=== PATIENT | male | born 1960 | race Caucasian/White ===

== ENCOUNTER → 2020-08-12 | Outpatient (CLI) | payer MEDICARE, OTHER | LOC: KOH-I 13:01 | DX: F17.210 Nicotine dependence, cigarettes, uncomplicated (principal); R91.8 Other nonspecific abnormal finding of lung field | CPT/HCPCS: 71271 ==

== ENCOUNTER 2021-08-30 10:06 | Inpatient (IN) | payer MEDICARE ==
[~2021-08-30] VITALS: Ht 170.2 cm; Wt 71.9 kg
[2021-08-30 11:01] LABS: HEMOGLOBIN 9.5 gm/dl (14.0-17.5); RED BLOOD COUNT 3.28 M/UL (4.20-5.50); WHITE BLOOD COUNT 6.8 K/UL (4.5-11.0)
[2021-08-30 11:30] LABS: BUN/CREATININE RATIO 15 (0-10)
[2021-08-30] MEDS ORDERED: SYNTHROID75 MCG PO (13:31)
[2021-08-30] MEDS ORDERED: ASPIRIN EC81 MG PO (13:31)
[2021-08-30] MEDS ORDERED: LOVASTATIN40 MG PO (13:31)
[2021-08-30] MEDS ORDERED: LOSARTAN POTAS100 MG PO (13:31)
[2021-08-30] MEDS ORDERED: OMEPRAZOLE20 MG PO (13:32)
[2021-08-30 15:32] LABS: BUN/CREATININE RATIO 15 (0-10)
[2021-08-30 20:04] LABS: BUN/CREATININE RATIO 14 (0-10)
[2021-08-30 23:29] LABS: BUN/CREATININE RATIO 17 (0-10)
[2021-08-31 03:34] LABS: HEMOGLOBIN 7.7 gm/dl (14.0-17.5)
[2021-08-31 03:36] LABS: RED BLOOD COUNT 2.64 M/UL (4.20-5.50); WHITE BLOOD COUNT 2.7 K/UL (4.5-11.0)
[2021-08-31 04:07] LABS: BUN/CREATININE RATIO 16 (0-10)
[2021-08-31 16:29] LABS: HEMOGLOBIN 7.5 gm/dl (14.0-17.5); RED BLOOD COUNT 2.58 M/UL (4.20-5.50)
[2021-08-31 16:30] LABS: WHITE BLOOD COUNT 5.6 K/UL (4.5-11.0)
[2021-08-31 17:16] LABS: BUN/CREATININE RATIO 22 (0-10)
[2021-08-31 19:47] LABS: HEMOGLOBIN 7.3 gm/dl (14.0-17.5); RED BLOOD COUNT 2.52 M/UL (4.20-5.50)
[2021-08-31 20:09] LABS: WHITE BLOOD COUNT 7.1 K/UL (4.5-11.0)
[2021-08-31 23:00] LABS: HEMOGLOBIN 7.1 gm/dl (14.0-17.5)
[2021-09-01 04:56] LABS: BUN/CREATININE RATIO 24 (0-10)
[2021-09-01 05:01] LABS: RED BLOOD COUNT 2.44 M/UL (4.20-5.50); WHITE BLOOD COUNT 7.4 K/UL (4.5-11.0)
[2021-09-01 05:36] LABS: HEMOGLOBIN 6.9 gm/dl (14.0-17.5)
[2021-09-03 04:13] LABS: RED BLOOD COUNT 2.79 M/UL (4.20-5.50); WHITE BLOOD COUNT 3.6 K/UL (4.5-11.0)
[2021-09-03] MEDS ORDERED: VITAMIN B-1100 M1 PO (11:28)
[2021-09-03] MEDS ORDERED: NICOTINE PATCH1 EAC1 TOP (11:28)
[2021-09-03] MEDS ORDERED: OMEPRAZOLE40 MG PO (11:28)
[2021-09-03] MEDS ORDERED: LOPRESSOR 25 MG25 MG PO (11:28)
[2021-09-03] MEDS ORDERED: ATORVASTATIN CA10 MG PO (11:28)
[2021-09-03] MEDS ORDERED: TAB-A-VITE TA400 MC1 PO (11:28)
[2021-09-03] MEDS ORDERED: FERROUS GLUCON324 M1 PO (11:37)
[2021-09-03] MEDS ORDERED: COZAAR 25MG TAB25 MG PO (11:37)
[2021-09-03] MEDS ORDERED: LASIX40 MG PO (11:37)
[2021-09-04] MEDS ORDERED: ATORVASTATIN CA10 MG PO (10:35)
[2021-09-04] MEDS ORDERED: FUROSEMIDE40 MG PO (10:37)
[2021-09-04] MEDS ORDERED: LOSARTAN POTASS25 MG PO (10:39)
[2021-09-04] MEDS ORDERED: METOPROLOL TART25 MG PO (10:41)
[2021-09-04] MEDS ORDERED: OMEPRAZOLE40 MG PO (10:42)
[2021-09-04] MEDS ORDERED: IPRAT-ALBUT 0.5-3 ML NEB (16:47)
[2021-09-04] MEDS ORDERED: ATORVASTATIN CA20 MG PO (16:47)
[2021-09-04] MEDS ORDERED: BUDESONIDE0.5 MG/2 M NEB (16:47)
[2021-09-04] MEDS ORDERED: NICOTINE PATCH1 EAC2 TD (16:47)
== END 2021-09-03 15:08 | disposition home or self-care (01) | DRG 280 ==
LOC: ER1 10:06 → CDU 12:38 → PROG CARE 12:38
PROVIDERS: Internal Medicine; Internal Medicine Interventional Cardiology; Physician Assistant; Physician Assistant Medical; ADMIT Internal Medicine Infectious Disease
PROC: 30233N1 Transfusion of Nonautologous Red Blood Cells into Peripheral Vein, Percutaneous Approach (ICD-10-PCS; principal; 2021-08-31)
PROC: B24BZZZ Ultrasonography of Heart with Aorta (ICD-10-PCS; 2021-08-31)
DX: I11.0 Hypertensive heart disease with heart failure (principal); I21.A1 Myocardial infarction type 2; I50.43 Acute on chronic combined systolic (congestive) and diastolic (congestive) heart failure; Z20.822 Contact with and (suspected) exposure to COVID-19; J18.9 Pneumonia, unspecified organism; J96.01 Acute respiratory failure with hypoxia; D62 Acute posthemorrhagic anemia; J44.0 Chronic obstructive pulmonary disease with (acute) lower respiratory infection; J44.1 Chronic obstructive pulmonary disease with (acute) exacerbation; E87.1 Hypo-osmolality and hyponatremia; E87.2 Acidosis; D61.818 Other pancytopenia; D46.Z Other myelodysplastic syndromes; E78.5 Hyperlipidemia, unspecified; E03.9 Hypothyroidism, unspecified; J64 Unspecified pneumoconiosis; N40.0 Benign prostatic hyperplasia without lower urinary tract symptoms; E83.42 Hypomagnesemia; D50.9 Iron deficiency anemia, unspecified; F10.10 Alcohol abuse, uncomplicated; F17.210 Nicotine dependence, cigarettes, uncomplicated; I27.20 Pulmonary hypertension, unspecified; I07.1 Rheumatic tricuspid insufficiency; Z85.89 Personal history of malignant neoplasm of other organs and systems; Z79.01 Long term (current) use of anticoagulants; Z79.82 Long term (current) use of aspirin
CPT/HCPCS: ECHO; 0240U; 36415; 36600; 71045; 78278; 80048; 80053; 81001; 82272; 82550; 82553; 82803; 83605; 83735; 83880; 84484; 85014; 85018; 85025; 85027; 85610; 85730; 86850; 86900; 86901; 86920; 87040; 87086; 93005; 93306; 94640; 94664; 94760; 96374; 96375; 99285; A9560; C9113; J1642; J1644; J1756; J1940; J2543; J2920; J2930; J3475; J7030; P9016; Q9967

== ENCOUNTER 2021-09-04 04:46 | Inpatient (IN) | payer MEDICARE ==
[~2021-09-04] VITALS: Ht 170.2 cm; Wt 73.0 kg
[~2021-09-04 04:46] MED LIST: ASPIRIN EC81 MG PO; ATORVASTATIN CA10 MG PO; COZAAR 25MG TAB25 MG PO; FERROUS GLUCON324 M1 PO; LASIX40 MG PO; LOPRESSOR 25 MG25 MG PO; LOSARTAN POTAS100 MG PO; LOVASTATIN40 MG PO; NICOTINE PATCH1 EAC1 TOP; OMEPRAZOLE20 MG PO; OMEPRAZOLE40 MG PO; SYNTHROID75 MCG PO; TAB-A-VITE TA400 MC1 PO; VITAMIN B-1100 M1 PO
[2021-09-04 05:29] LABS: RED BLOOD COUNT 3.06 M/UL (4.20-5.50); WHITE BLOOD COUNT 4.9 K/UL (4.5-11.0)
[2021-09-04 05:51] LABS: BUN/CREATININE RATIO 13 (0-10)
[2021-09-04] MEDS ORDERED: ATORVASTATIN CA10 MG PO (10:35)
[2021-09-04] MEDS ORDERED: FUROSEMIDE40 MG PO (10:37)
[2021-09-04] MEDS ORDERED: LOSARTAN POTASS25 MG PO (10:39)
[2021-09-04] MEDS ORDERED: METOPROLOL TART25 MG PO (10:41)
[2021-09-04] MEDS ORDERED: OMEPRAZOLE40 MG PO (10:42)
[2021-09-04] MEDS ORDERED: ATORVASTATIN CA20 MG PO (16:47)
[2021-09-04] MEDS ORDERED: NICOTINE PATCH1 EAC2 TD (16:47)
[2021-09-04] MEDS ORDERED: BUDESONIDE0.5 MG/2 M NEB (16:47)
[2021-09-04] MEDS ORDERED: IPRAT-ALBUT 0.5-3 ML NEB (16:47)
--- NOTE | 2021-09-04 18:00 | NUR ---
REPORT CALLED TO SORAIDA AT [facility].
--- NOTE | 2021-09-04 18:50 | NUR ---
REPORT CALLED TO [facility]
== END 2021-09-04 20:34 | DRG 280 ==
LOC: ER1 04:46 → CDU 08:37 → M/S 10:16
PROVIDERS: Student in an Organized Health Care Education/Training Program; ADMIT Internal Medicine
DX: I11.0 Hypertensive heart disease with heart failure (principal); I21.A1 Myocardial infarction type 2; Z20.822 Contact with and (suspected) exposure to COVID-19; I50.43 Acute on chronic combined systolic (congestive) and diastolic (congestive) heart failure; J96.01 Acute respiratory failure with hypoxia; E87.1 Hypo-osmolality and hyponatremia; J44.1 Chronic obstructive pulmonary disease with (acute) exacerbation; D50.9 Iron deficiency anemia, unspecified; E03.9 Hypothyroidism, unspecified; F10.10 Alcohol abuse, uncomplicated; F17.210 Nicotine dependence, cigarettes, uncomplicated; I08.1 Rheumatic disorders of both mitral and tricuspid valves; I27.20 Pulmonary hypertension, unspecified; I49.3 Ventricular premature depolarization; Z79.82 Long term (current) use of aspirin; Z79.01 Long term (current) use of anticoagulants; Z85.89 Personal history of malignant neoplasm of other organs and systems; Z82.49 Family history of ischemic heart disease and other diseases of the circulatory system; Z80.9 Family history of malignant neoplasm, unspecified; Z71.41 Alcohol abuse counseling and surveillance of alcoholic; Z71.6 Tobacco abuse counseling
CPT/HCPCS: 0240U; 36600; 71045; 80053; 82550; 82553; 82803; 83605; 83735; 83880; 84484; 85025; 93005; 94640; 94664; 94760; 96374; 96375; 99285; J1100; J1940

== ENCOUNTER → 2021-11-08 | Outpatient (CLI) | payer MEDICARE ==
[~2021-11-08] MED LIST changes: +ATORVASTATIN CA20 MG PO; +ATORVASTATIN CA80 MG PO; +B-1100 MG PO; +BRILINTA90 MG PO; +BUDESONIDE0.5 MG/2 M NEB; +CARVEDILOL3.125 MG PO; +DAILY VITE1 EACH PO; +FUROSEMIDE40 MG PO; +IPRAT-ALBUT 0.5-3 ML NEB; +JARDIANCE10 MG PO; +LOSARTAN POTASS25 MG PO; +METOPROLOL TART25 MG PO; +NICOTINE PATCH1 EAC2 TD; +VALSARTAN80 MG PO
[2021-11-08 11:18] LABS: HEMOGLOBIN 7.7 gm/dl (14.0-17.5); RED BLOOD COUNT 2.21 M/UL (4.20-5.50); WHITE BLOOD COUNT 4.2 K/UL (4.5-11.0)
[2021-11-08 12:10] LABS: BUN/CREATININE RATIO 11 (0-10)
== END ==
LOC: OPSV2 10:00
PROVIDERS: Anesthesiology
DX: Z01.818 Encounter for other preprocedural examination (principal); E78.00 Pure hypercholesterolemia, unspecified; D64.9 Anemia, unspecified; R91.8 Other nonspecific abnormal finding of lung field
CPT/HCPCS: 80048; 80061; 80076; 85025; 93005

== ENCOUNTER → 2021-11-15 | Outpatient (CLI) | payer MEDICARE | LOC: HEART 5 13:42 | DX: R06.02 Shortness of breath (principal); R94.2 Abnormal results of pulmonary function studies | CPT/HCPCS: 94060; 94729 ==